=== PATIENT | female | born 1945 | race Caucasian/White ===

== ENCOUNTER → 2017-08-11 07:11 | Day surgery (SDC) | payer MEDICARE ==
--- NOTE | 2017-08-07 11:54 | HP ---
AMENDED REPORT NOW INCLUDES COSIGNER DESIGNATION - ESIGNED BEFORE ADJUSTMENT PREOPERATIVE HISTORY AND PHYSICAL: DATE OF ADMISSION: 08/11/17 PROVIDER: Ben Traylor MD * (DICTATED BY DAVI JEROME) CHIEF COMPLAINT: Left shoulder pain. HISTORY OF PRESENT ILLNESS: Danay is a 71-year-old female who has had ongoing left shoulder pain for more than a year. She was diagnosed previously with adhesive capsulitis, subacromial impingement, and AC joint arthritis. She had undergone physical therapy with minimal relief. She, over the last year, has had more difficulty with activities of daily living, especially with overhead motions and reaching around behind her back. She has also tried anti- inflammatories without much relief. She is interested in surgical intervention for correction of the problem. PAST MEDICAL HISTORY: Type 1 diabetes, insulin dependent with a pump. PAST SURGICAL HISTORY: Tonsillectomy, insulin pump placement, appendectomy, bilateral carpal tunnel release, cataract excision bilaterally, manipulation under anesthesia of the right shoulder, and parotidectomy of the left side. She reports no complications with anesthesia with those procedures. CURRENT MEDICATIONS: 1. Insulin NovoLog in pump. 2. Vitamin D3 supplement. 3. Alpha-lipoic acid. ALLERGIES: PENICILLIN. FAMILY HISTORY: Positive for diabetes in her brother, breast cancer in her mother, stroke in her father. SOCIAL HISTORY: She denies a history of tobacco use. She denies alcoholic beverages. She lives with her partner. She is a retired chemical lab supervisor. REVIEW OF SYSTEMS: Constitutional: Negative for recent hospitalizations, fevers, chills, night sweats, or unexplained weight loss. Head: Negative for headaches, lightheadedness, or balance problems. Cardiovascular: Negative for chest or arm pain with exertion, history of heart attack, heart murmur, heart palpitations, high blood pressure, embolism, or deep vein thrombosis. Respiratory: Negative for chronic cough, shortness of breath with exertion, asthma, or COPD. Gastrointestinal: Negative for heartburn, nausea, vomiting, diarrhea, constipation, or GERD. Genitourinary: Negative for nighttime urination, frequency of urination, urinary tract infections, or kidney problems. Musculoskeletal: Negative for chronic back or neck pain. Negative for recent fracture. Skin: Negative for rashes, lesions, lumps, or sores. Neurologic: Negative for seizure, stroke, epilepsy, depression, or anxiety. Endocrine: Positive for diabetes. Negative for thyroid problems. Hematology: Negative for easy bleeding, bruising, anemia. PHYSICAL EXAMINATION GENERAL: She is a well-developed, well-nourished, pleasant female in no acute distress at rest. She is alert and oriented x3 with appropriate mood and affect. VITAL SIGNS: The patient is 5 feet 4 inches, 139 pounds. Blood pressure 102/60 , pulse of 80. HEENT: Normocephalic, atraumatic. Her hearing and vision are grossly intact. NECK: Her trachea is midline. RESPIRATORY: Lungs clear to auscultation bilaterally. No wheezes, rales, or rhonchi. CARDIOVASCULAR: Regular rate and rhythm. No murmurs, rubs, or gallops. Normal S1, S2. ABDOMEN: Soft, nondistended, nontender. Normal bowel sounds. EXTREMITIES: Exam of the left upper extremity: Skin is intact without abrasions or open wounds. There is no soft tissue swelling or bruising. She has passive range of motion of the shoulder to 115 degrees in forward flexion, 65 degrees of external rotation, and 60 degrees of internal rotation. She has a positive Neer's, positive Geronimo. Rotator cuff stress testing is significant only for trace pain with belly press testing of the subscapularis. Positive AC joint tenderness to palpation. No proximal biceps tenderness to palpation. Positive mild pain with Speed's test. Negative Mower's. Neurovascularly intact distally. IMAGING: MRI of the left shoulder from an outside facility shows no rotator cuff tear or labral tear. There is thickening of the intraarticular portion of the long head of the biceps tendon and thickening of the anterior and posterior bands of the inferior glenohumeral ligament consistent with possible adhesive capsulitis. There are degenerative changes and bony hypertrophy about the acromioclavicular joint as well. IMPRESSION: Left shoulder adhesive capsulitis, possible biceps tendinosis, and AC joint arthritis. PLAN: The patient is to undergo left shoulder arthroscopy with excision of the distal clavicle, subacromial decompression, manipulation under anesthesia and lysis of adhesions with possible biceps tenotomy. The risks, benefits, and post -operative course were discussed with the patient at length and she would like to proceed. A prescription for Percocet was sent to her pharmacy for postoperative pain. All of her questions were answered to her full satisfaction. DAVI JEROME [id number]/[facility] #: [id number] [facility] HOSPITALSheeba
[~2017-08-11 07:11] MED LIST: Atracurium* 10 MG/ML 10 ML VIAL ONE; Buffered Lidocaine 0.9% SYRIN* 5 ML/SYR SYRINGE INTRADERM ONE; Bupivacaine 0.5% SDV PF* 30ML VIAL ONE; Clindamycin 900 MG IVPREMIX(* 900 MG/50 ML SDV IV ONE; Dexamethasone IV* 4 MG/ML 1 ML (4 MG) ONE; DiMENhydriNATE IV* 50 MG/ML VIAL IV PUSH PRN; DiMENhydriNATE IV* 50 MG/ML VIAL ONE; EPINEPHRINE 1 MG/ML 1 ML VIAL ONE; Famotidine IV* 10 MG/ML 2 ML (20 mg) IV ONE; Famotidine IV* 10 MG/ML 2 ML (20 mg) ONE; HYDROmorphone INJ* 1 MG/ML CARPUJECT SYRINGE IV PRN; Metoprolol Tartrate IV* 1 MG/ML 5 ML VIAL ONE; Midazolam* 1 MG/ML 5 ML VIAL (5 MG) ONE; Naloxone* 0.4 MG/ML 1 ML VIAL IV PRN; Ondansetron INJ* 2 MG/ML VIAL IV PRN; Propofol* 10 MG/ML 20 ML BTL IV PUSH ONE; ROPIVACAINE 5 MG/ML 30 ML BTL (0.5%) ONE; fentaNYL* 50 MCG/ML 2 ML VIAL (100 MCG VIAL) IV PRN; fentaNYL* 50 MCG/ML 2 ML VIAL (100 MCG VIAL) ONE; oxyCODONE/Acetamin 5/325 MG* TAB PO PRN
[2017-08-11] MEDS: Dexamethasone IV* 4 MG/ML 1 ML (4 MG) IV SLOW PU ONE ×2 (07:53→09:12)
[2017-08-11 14:40] VITALS: BP 135/76
--- NOTE | 2017-08-13 00:24 | OP ---
OPERATIVE REPORT: DATE OF OPERATION: 08/11/17 DATE OF : 47 SURGEON: Ben Traylor MD GARDENING MANAGER: DAVI Yoo. A physician engineer second assistant was required for the length of the procedure for assistance with positioning, instrumentation and closure. ANESTHESIOLOGIST: Dr. Tye Byrne. ANESTHESIA: General anesthesia, regional interscalene block anesthesia, local anesthesia consisting of lidocaine 0.25% x 20 cc adjacent to skin incisions at the conclusion of the case. PRE-OP DIAGNOSES: 1. Left shoulder adhesive capsulitis. 2. Possible left shoulder biceps tendinosis. 3. Left shoulder AC joint arthritis, subacromial bursitis and impingement. POST-OP DIAGNOSES: 1. Left shoulder adhesive capsulitis. 2. Left shoulder proximal biceps tendinosis. 3. Left shoulder AC joint arthritis. 4. Left shoulder subacromial bursitis and impingement. OPERATIVE PROCEDURE: 1. Left shoulder manipulation under anesthesia. 2. Left shoulder arthroscopic lysis of adhesions including capsulotomy and debridement of rotator cuff interval tissue. 3. Left shoulder arthroscopic subacromial decompression of bone as well as debridement of significant thickened bursa. 4. Left shoulder arthroscopic distal clavicle resection. ANTIBIOTICS: Clindamycin 900 mg IV. IV FLUIDS: 1400 cc crystalloids. [id number] TIME: 61 minutes. ARTHROSCOPIC FLUID UTILIZED: There were 3 full 3 L bags and parts of four 3 L bags. The total utilized was 18 L for an equivalent of 6 full bags. COMPLICATIONS: None. IMPLANTS: None. SPECIMEN: None. ESTIMATED BLOOD LOSS: Minimal. INDICATIONS FOR PROCEDURE: The patient is a 71-year-old woman, retired, who I followed for sometime, in clinic, right-hand dominant, with type 1 diabetes, insulin-dependent, with a diagnosis of left shoulder adhesive capsulitis, subacromial impingement and bursitis, AC joint arthritis and possible proximal biceps tendinosis. The patient failed a full spectrum of nonoperative management as described in my 08/01/17 history and physical. The patient opted for surgical management. The patient was informed of risks and potential complications. DESCRIPTION OF PROCEDURE: In preoperative holding, the patient signed a written consent. Operative extremity was marked in preoperative holding. The patient underwent interscalene digital nerve block by Dr. Byrne. The patient was taken back to the operating room, placed supine on the operating room table. The patient was sedated and intubated. A mini time-out was performed. The patient initially had much stiffness to the shoulder, but with manipulation, I brought the patient's shoulder to a passive range of motion of 180 degrees forward flexion, 90 degrees of external and internal rotation with the shoulder abducted. I felt release of tissues, capsule as I was doing the manipulation. The patient was placed in a lateral decubitus position with the left shoulder up. Axillary roll placed. [place] bag hardened. All bony prominences padded. A longitudinal traction placed to the left shoulder in the appropriate amount of forward flexion and abduction. Ten pounds was utilized. The left shoulder was prepped and draped. Surgical time out was performed. A spinal needle was placed into the shoulder joint and 30 cc of normal saline was infused. I next established a posterior glenohumeral joint portal. I started my diagnostic arthroscopy. There was some blood in the glenohumeral joint, which I removed. The patient had more arthritic change in the glenohumeral joint than I was anticipating. While there was just softening, grade1 changes diffusely about the glenoid and much of the humeral head, especially towards the superior aspect of the humeral head, there were more advanced changes, grade 2 or 3. There was no clear supraspinatus rotator cuff tendon tear. There was tendinosis along the biceps tendon. Therefore, I decided to release the biceps tendon. The patient and I discussed management of the biceps preoperatively, biceps release versus open tendinosis. She had chosen release. I established my glenohumeral joint portal. I used an arthroscopic shaver to debride some blood and improve my view. I then entered some arthroscopic scissors and used them to release the biceps near its origin. I debrided the stump of the arthroscopic shaver. I next debrided much rotator interval scar tissue, so that I was able to feel the coracoid. I was better able to appreciate the anatomy of the subscapularis at this point. I visualized subscapularis in a variety of positions and it was not torn. I debrided some synovitic tissue with the arthroscopic shaver. I then obtained a hook tip cautery device. I released some capsule anteriorly and posteriorly while viewing through the posterior and also through the anterior cannula to maximize my visualization and my dexterity for release. Happy with my capsulotomy and debridement of synovitic tissue as well as my biceps release, I removed my instruments and fluids from the glenohumeral joint. I entered the subacromial space from anterior and posterior. I established a lateral subacromial portal under direct visualization. I encountered significant subacromial bursitis, I believe perhaps the thickest subacromial bursa that I have encountered as a surgeon. I with an arthroscopic shaver debrided that subacromial bursa and reestablished appropriate gutters. Rotator cuff was intact. I next better visualized the subacromial space through a posterolateral portal which was established under direct visualization. I performed a subacromial decompression of bone using arthroscopic twin. I then directed myself to the AC joint. I debrided bursitic tissue about it with a VAPR device. I then removed 8 mm of the distal end of the clavicle with an arthroscopic twin. I removed instruments and fluids from the subacromial space. I closed the skin incisions with [id number] stitches using nylon 4-0 suture. Local anesthetic was then placed, 20 cc of 0.25% Marcaine. Xeroform, 4x4s, ABDs, foam tape. Sling was applied without abduction pillow and cooling unit. The patient was awakened and transferred to the PACU. DISPOSITION: The patient was to take Percocet as needed for pain control and aspirin twice a day for 2 weeks for DVT prophylaxis. The patient will follow up in my clinic in 10 to 14 days postoperatively. She will start physical therapy immediately, so she does not lose any of the gains in range of motion we obtained intraoperatively. Wound care instructions were provided in a wound care instruction sheet. [id number] #: [id number] LEIF
== END | disposition home or self-care (01) ==
LOC: OR 07:11
PROVIDERS: ATTEND Orthopaedic Surgery
DX: M19.012 Primary osteoarthritis, left shoulder (principal); M75.42 Impingement syndrome of left shoulder; M75.02 Adhesive capsulitis of left shoulder; M75.22 Bicipital tendinitis, left shoulder; E10.9 Type 1 diabetes mellitus without complications; Z88.0 Allergy status to penicillin; Z79.4 Long term (current) use of insulin
CPT/HCPCS: J1100; J1240; J2250; J2704; J2795; J3010; J3490